=== PATIENT | female | born 1950 | race Caucasian/White ===

== ENCOUNTER 2017-10-23 12:37 | Emergency (ER) | payer OTHER ==
[2017-10-23] MEDS ORDERED: TDAP ADULT 0.5 ML INJ (BOOSTRIX) IM ONE (14:14)
--- NOTE | 2017-10-23 14:16 | EDPHY ---
H & P Time Seen by Provider: 10/23/17 13:45 HPI/ROS: CHIEF COMPLAINT: Right knee injury HISTORY OF PRESENT ILLNESS: 67-year-old female presents to the emergency department with isolated injury to her right knee. The patient was hiking and slipped and fell. She states that she twisted her knee and then she fell directly on the knee. She denies hitting her head or losing consciousness. Denies neck or back pain. Denies pain in her chest or difficulty breathing. Denies abdominal pain. She complains of isolated pain to the right knee. She was carried down from the hike. She has not tried to bear weight on this since her fall. ROS: Denies numbness or tingling in her toes, pain in her right ankle or her right hip. Denies any symptoms left lower extremity. Past Medical/Surgical History: Negative Social History: , visiting from [facility] Smoking Status: Never smoked Physical Exam: On examination there is no visible signs of trauma to her head. She does have some overlying superficial abrasions to the right knee. She has pain with palpation to the right medial joint line. She is unable to fully extend her right knee out without assistance with her arm or 5 passively tried extend her right knee. She is holding her knee in about 30 degrees of flexion for comfort. No other palpable bony tenderness. Right ankle is nontender. Right hip nontender. Strong posterior tibial pulses palpated in the medial aspect of the right ankle. Her gait is not tested due to pain. 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 Medications Given: Discontinued Medications Diphtheria/Tetanus/Acell Pertussis (Boostrix) 0.5 ml IM .ONCE ONE Stop: 10/23/17 14:15 Last Admin: 10/23/17 14:22 Dose: 0.5 ml ED Course/Re-evaluation: 67-year-old female presents to the emergency department with right knee injury. X-rays reveal no obvious fractures. She does have pain with palpation the medial joint line and I was concerned about possible medial meniscus injury. She was placed in straight leg knee immobilizer and was given orthopedic referral. She plans to travel back to [place] at this week and will follow up with orthopedist. - Depart Disposition: Home, Routine, Self-Care Clinical Impression: Abrasion, right knee, initial encounter Contusion of right knee Qualifiers: Encounter type: initial encounter Qualified Code(s): S80.01XA - Contusion of right knee, initial encounter Sprain, knee Qualifiers: Encounter type: initial encounter Involved ligament of knee: unspecified ligament Laterality: right Qualified Code(s): S83.91XA - Sprain of unspecified site of right knee, initial encounter Instructions: Contusion in Adults (ED), Abrasion (ED), Acute Wounds (ED) Additional Instructions: Straight leg knee immobilizer for comfort and support. Ibuprofen 400 mg every 8 hr as needed for pain. Your given a tetanus shot today in the emergency department. Please document this for your records. Straight leg knee immobilizer for comfort and support. Follow up with orthopedic surgeon in 1 week to recheck. Referrals: William Meyer MD [Medical Doctor] - 5-7 days, call for appt. (Orthopedic surgeon on-call)
[2017-10-23 14:40] VITALS: BP 125/70
== END 2017-10-23 15:59 | disposition home or self-care (01) ==
DX: S83.91XA Sprain of unspecified site of right knee, initial encounter (principal); S80.01XA Contusion of right knee, initial encounter; W01.0XXA Fall on same level from slipping, tripping and stumbling without subsequent striking against object, initial encounter; Y93.01 Activity, walking, marching and hiking; Y99.8 Other external cause status; Z23 Encounter for immunization